=== PATIENT | female | born 1955 | race Two or more races ===

== ENCOUNTER 2021-08-01 15:38 | Emergency (ER) | payer MEDICAID ==
[~2021-08-01] VITALS: Ht 160 cm; Wt 69.0 kg
[~2021-08-01 15:38] MED LIST: FURO-152 MT; ONDA4TAB5 PO; POTA20TA82 PO; SPIR50TA5 PO
[2021-08-01 15:42] VITALS: BP 145/53
== END 2021-08-01 17:01 | disposition home or self-care (01) ==
LOC: ER 15:38
DX: I80.9 Phlebitis and thrombophlebitis of unspecified site (principal); E86.0 Dehydration; F41.9 Anxiety disorder, unspecified; Z85.6 Personal history of leukemia; Z87.19 Personal history of other diseases of the digestive system
CPT/HCPCS: 99281